=== PATIENT | female | born 1985 | race Caucasian/White ===

== ENCOUNTER 2018-07-13 15:17 | Emergency (ER) | payer OTHER ==
[~2018-07-13] VITALS: Ht 157.5 cm; Wt 75.0 kg
[2018-07-13] MEDS ORDERED: LEXAPRO10 MG PO (15:32)
[2018-07-13] MEDS ORDERED: WELLBUTRIN SR150 MG PO (15:32)
[2018-07-13] MEDS ORDERED: SEASONIQUE PO (15:49)
[2018-07-13] MEDS ORDERED: SPIRONOLACT25 MG PO (15:50)
[2018-07-13 16:19] VITALS: BP 140/93
== END 2018-07-13 16:25 | disposition home or self-care (01) | DRG 605 ==
LOC: ED 15:17
DX: S00.81XA Abrasion of other part of head, initial encounter (principal); S00.211A Abrasion of right eyelid and periocular area, initial encounter; S00.83XA Contusion of other part of head, initial encounter; S16.1XXA Strain of muscle, fascia and tendon at neck level, initial encounter; Y35.891A Legal intervention involving other specified means, law enforcement official injured, initial encounter; Y93.89 Activity, other specified; Y92.149 Unspecified place in prison as the place of occurrence of the external cause; Y99.0 Civilian activity done for income or pay